=== PATIENT | female | born 1955 | race Caucasian/White ===

== ENCOUNTER 2023-12-03 14:52 | Emergency (ER) | payer OTHER ==
[~2023-12-03] VITALS: Ht 160 cm; Wt 80.7 kg
[~2023-12-03 14:52] MED LIST: RABE20TA18 PO
[2023-12-03] MEDS ORDERED: ACETAMINOPHEN ES 500 MG TABLET ONE (15:33)
[2023-12-03] MEDS ORDERED: OXYM15MI4 NS (16:11)
[2023-12-03] MEDS ORDERED: CLIN300C12 PO (16:17)
[2023-12-03] MEDS ORDERED: CLINDAMYCIN HCL 150 MG CAPSULE ONE (16:17)
[2023-12-03] MEDS: CLINDAMYCIN HCL 150 MG CAPSULE PO ONE (16:20)
[2023-12-03] MEDS: ACETAMINOPHEN ES 500 MG TABLET PO ONE (16:28)
[2023-12-03 16:29] VITALS: BP 110/65; TEMP 98.1; O2SAT 98
== END 2023-12-03 16:29 | disposition home or self-care (01) ==
LOC: ER 15:59
DX: S02.2XXA Fracture of nasal bones, initial encounter for closed fracture (principal); K21.9 Gastro-esophageal reflux disease without esophagitis; Z88.0 Allergy status to penicillin; Z88.8 Allergy status to other drugs, medicaments and biological substances; W01.0XXA Fall on same level from slipping, tripping and stumbling without subsequent striking against object, initial encounter; Y93.89 Activity, other specified; Y92.89 Other specified places as the place of occurrence of the external cause; Y99.8 Other external cause status
CPT/HCPCS: 70450-TC; 70486-TC